=== PATIENT | male | born 1980 | race African-American/Black ===

== ENCOUNTER 2023-07-31 17:52 | Emergency (ER) | payer MEDICAID ==
[~2023-07-31] VITALS: Ht 175.3 cm; Wt 84.0 kg
[~2023-07-31 17:52] MED LIST: ZOLP5TAB2
[2023-07-31 18:11] VITALS: BP 114/69; PULSE 71; RESP 16; TEMP 98.4; O2SAT 100
== END 2023-07-31 22:53 | disposition left against medical advice (07) ==
LOC: ER 17:52
DX: S99.912A Unspecified injury of left ankle, initial encounter (principal); W18.39XA Other fall on same level, initial encounter; Y93.89 Activity, other specified; Y92.89 Other specified places as the place of occurrence of the external cause; Y99.8 Other external cause status
CPT/HCPCS: 99281